=== PATIENT | male | born 1950 | race Caucasian/White ===

== ENCOUNTER → 2016-11-30 | Outpatient (CLI) | payer MEDICARE, BC ==
[~2016-11-30] MED LIST: ASPIRIN E.C. 8181 MG PO; CALCIUM CITRATE1 TA2 PO; CENTRUM SAW PA160 MG PO; FIBERCON625 MG PO; LISINOPRIL40 MG PO; MAREPA1200 MG PO; METFORMIN500 MG PO; MULTIPLE VITAMI1 CAP PO; SIMVASTATIN40 MG PO; VITAMIN B12500 MCG PO; VITAMIN C BUFF500 MG PO; VITAMIN D1000 IU PO
== END ==
LOC: SUN.DIA 13:00
DX: E11.40 Type 2 diabetes mellitus with diabetic neuropathy, unspecified (principal); Z68.37 Body mass index [BMI] 37.0-37.9, adult; Z79.84 Long term (current) use of oral hypoglycemic drugs; E66.9 Obesity, unspecified; Z71.3 Dietary counseling and surveillance; E78.5 Hyperlipidemia, unspecified; I10 Essential (primary) hypertension

== ENCOUNTER 2017-03-04 09:30 | Outpatient (RCR) | payer MEDICARE, BC | END 2017-03-09 10:15 | disposition home or self-care (01) | LOC: WSPT 09:30 | DX: M25.511 Pain in right shoulder (principal) | CPT/HCPCS: G8981-GP; G8982-GP; G8983-GP ==

== ENCOUNTER → 2017-06-03 | Outpatient (CLI) | payer MEDICARE, BC | LOC: SUN.DIA 10:45 | DX: E11.40 Type 2 diabetes mellitus with diabetic neuropathy, unspecified (principal); E78.5 Hyperlipidemia, unspecified; I10 Essential (primary) hypertension; E66.9 Obesity, unspecified; Z68.37 Body mass index [BMI] 37.0-37.9, adult; Z71.3 Dietary counseling and surveillance | CPT/HCPCS: G0108 ==

== ENCOUNTER → 2017-12-02 | Outpatient (CLI) | payer MEDICARE, BC | LOC: SUN.DIA 10:50 | DX: E11.40 Type 2 diabetes mellitus with diabetic neuropathy, unspecified (principal); E78.5 Hyperlipidemia, unspecified; I10 Essential (primary) hypertension; E66.9 Obesity, unspecified; Z68.37 Body mass index [BMI] 37.0-37.9, adult; Z71.3 Dietary counseling and surveillance | CPT/HCPCS: G0108 ==

== ENCOUNTER 2021-05-19 09:30 | Outpatient (RCR) | payer MEDICARE, BC | END 2021-07-28 | disposition still patient (30) | LOC: PT.GENESIS | DX: M25.872 Other specified joint disorders, left ankle and foot (principal); M25.871 Other specified joint disorders, right ankle and foot; I10 Essential (primary) hypertension; E11.59 Type 2 diabetes mellitus with other circulatory complications ==

== ENCOUNTER → 2021-10-30 | Outpatient (CLI) | payer MEDICARE, BC | LOC: ZCOL.LAB 15:18 | DX: Z20.822 Contact with and (suspected) exposure to COVID-19 (principal) ==

== ENCOUNTER → 2021-11-03 | Outpatient (CLI) | payer MEDICARE | LOC: ZCOL.LAB 17:01 | DX: R05.1 Acute cough (principal); R53.83 Other fatigue; Z20.822 Contact with and (suspected) exposure to COVID-19 ==

== ENCOUNTER 2022-05-11 17:01 | Emergency (ER) | payer MEDICARE, BC ==
[~2022-05-11] VITALS: Ht 170.2 cm; Wt 99.1 kg
[2022-05-11 17:59] VITALS: BP 184/89; TEMP 98.3
[2022-05-11 18:28] VITALS: PULSE 51
== END 2022-05-11 18:31 | disposition home or self-care (01) ==
LOC: COL.ER 17:01
DX: M79.661 Pain in right lower leg (principal); I10 Essential (primary) hypertension
CPT/HCPCS: J1650

== ENCOUNTER → 2022-05-12 | Outpatient (CLI) | payer MEDICARE, BC | LOC: COL.VAS 08:16 | DX: M79.606 Pain in leg, unspecified (principal) ==

== ENCOUNTER 2023-10-28 16:26 | Emergency (ER) | payer MEDICARE, BC ==
[~2023-10-28] VITALS: Ht 170.2 cm; Wt 100.0 kg
[2023-10-28 16:32] VITALS: TEMP 98.4
[2023-10-28] MEDS ORDERED: CRUTCHES MC (18:24)
[2023-10-28 18:28] VITALS: BP 149/88; PULSE 104
== END 2023-10-28 18:39 | disposition home or self-care (01) ==
LOC: COL.ER 16:26
DX: S93.401A Sprain of unspecified ligament of right ankle, initial encounter (principal); W19.XXXA Unspecified fall, initial encounter
CPT/HCPCS: 31868; L4386

== ENCOUNTER → 2024-02-18 | Outpatient (CLI) | payer MEDICARE, BC ==
[~2024-02-18] MED LIST changes: +CRUTCHES MC
== END ==
LOC: COL.RAD 13:42
DX: K80.20 Calculus of gallbladder without cholecystitis without obstruction (principal); R74.01 Elevation of levels of liver transaminase levels